=== PATIENT | male | born 1985 | race Caucasian/White ===

== ENCOUNTER 2025-08-26 08:07 | Day surgery (SDC) | payer OTHER, SELFPAY ==
[2025-08-26 08:47] VITALS: BMI 29.6
--- NOTE | 2025-08-26 10:11 | ITS.CL.CARDI ---
Chronometer Assembler - Cardioversion
Cardioversion
Procedure Report:
Procedure: MARVEL-guided electrical cardioversion
Pre-operative diagnosis: Persistent atrial fibrillation
Post-operative diagnosis: Persistent atrial fibrillation status post DC cardioversion to sinus rhythm
Anesthesia: MAC
Attending Physician: Samson Polanco MD
Procedure Description: The patient was brought to the electrophysiology laboratory in the fasting state. Informed consent was obtained from the patient prior to the start of the procedure. Adherence to anticoagulation was confirmed. Electrodes were
placed on the patient and connected to an external defibrillator. Monitoring of blood pressure, ECG tracings, and pulse oximetry was initiated. The pads were applied to the patient in the anterior and posterior positions. The patient was sedated by
the anesthesiologist. A MARVEL (reported separately) was performed prior to the cardioversion. No left atrial or left atrial appendage thrombus was seen. After the MARVEL probe was removed, a 200 joule biphasic synchronized shock was delivered to the
patient under MAC anesthesia. Sinus rhythm was successfully restored. The patient recovered uneventfully from MAC anesthesia. There were no immediate post-procedure complications. The patient left the lab in good condition. The attending physician
was present throughout the entire procedure.
Impression: Successful MARVEL-guided direct current cardioversion with quaker of sinus rhythm after one 200 joule biphasic synchronized shock.
== END 2025-08-26 10:30 | disposition home or self-care (01) ==
LOC: CATH 08:07
PROVIDERS: ATTENDING PHYSICIAN Internal Medicine Cardiovascular Disease; FAMILY PHYSICIAN Internal Medicine; OTHER PHYSICIAN Internal Medicine Cardiovascular Disease
DX: I48.19 Other persistent atrial fibrillation (principal); I34.1 Nonrheumatic mitral (valve) prolapse
CPT/HCPCS: 93312; 93325; 93320; 92960; 93005

== ENCOUNTER → 2025-09-18 17:10 | Outpatient (REF) | payer OTHER, SELFPAY | LOC: DHSLP 17:10 | PROVIDERS: ATTENDING PHYSICIAN Internal Medicine Cardiovascular Disease; FAMILY PHYSICIAN Internal Medicine | DX: G47.30 Sleep apnea, unspecified (principal); R06.83 Snoring | CPT/HCPCS: 95800 ==

== ENCOUNTER 2025-10-31 08:28 | Day surgery (SDC) | payer OTHER, SELFPAY ==
[2025-10-20 13:19] VITALS: BMI 28.5
[2025-10-20 13:43] LABS: Hematocrit 43.5 % (39.0-52.0); Hemoglobin 14.9 g/dL (13.0-18.0); Mean Corp Hgb Conc. 34.3 g/dL (33.0-37.0); Mean Corpuscular Volume 87.2 fL (80.0-94.0); Nucleated Red Blood Cells % 0 % (-); Platelet Count 269 10^3/uL (130-400); Red Cell Dist. Width 13.3 % (11.5-14.5)
[2025-10-20 13:50] LABS: INR 1.19; PT 15.2 Sec (11.4-14.6)
[2025-10-20 13:51] LABS: ALT (SGPT) 31 U/L (0-50); AST (SGOT) 27 U/L (17-59); Albumin 5.0 g/dl (3.5-5.0); Alkaline Phosphatase 64 U/L (38-126); Blood Urea Nitrogen 15 mg/dl (9-20); Calcium 9.9 mg/dl (8.4-10.2); Carbon Dioxide 30 mmol/L (22-30); Chloride 103 mmol/L (98-107); Estimated Creatinine Clearance 102 ml/min; Glucose 97 mg/dl (70-99); Magnesium 2.0 mg/dl (1.6-2.3); Potassium 4.2 mmol/L (3.5-5.1); Sodium 139 mmol/L (135-145); Total Protein 8.2 g/dl (6.3-8.2); eGFR > 60.00
[2025-10-31] VITALS (8 sets, daily range): BP systolic 108–150; BP diastolic 76–92; BMI 28.9
[2025-10-31 12:03] LABS: ACT-LR - POC 351 Seconds (116-155)
[2025-10-31 12:36] LABS: ACT-LR - POC 350 Seconds (116-155)
[2025-10-31 12:58] LABS: ACT-LR - POC 190 Seconds (116-155)
--- NOTE | 2025-10-31 13:13 | ITS.CL.ABL ---
House Furnishings Supervisor - Ablation
Ablation
Procedure Report:
Primary Care: Dr Gustavo Heredia
Procedure Date: 10/31/2025
Patient History:
Patient is a pleasant 40-year-old male with a past medical history significant for suspected sleep apnea, ADHD, and symptomatic persistent atrial fibrillation.
See H&P for complete details.
Indication:
Symptomatic persistent atrial fibrillation
Arrhythmia Specific History:
Prior Medical Therapies for Rate and Rhythm Control:
[ ] Beta-maribel
[ ] Calcium channel-maribel
[ ] Amiodarone
[ ] Dronederone
[ ] Sotalol
[ ] Flecainide
[ ] Dofetilide
X Options limited by bradycardia
[ ] Options limited by comorbid renal disease
Prior Procedural Therapies for AF/AFL:
X Cardioversion
[ ] Pulmonary Vein Isolation
[ ] Posterior Wall Isolation
[ ] Additional lines (Specify)
[ ] Surgical Gerber-MAZE or PVI (Specify)
Procedure Performed:
X AF ablation procedure (23756) -- includes LA/CS pacing, trans-septal, 3D mapping, + ICE
[ ] +IV drug (70333)
[ ] +Other Arrhythmia (86951)
[ ] +Other AF Line/ablation (32609)
Risks and expected recovery has been explained in detail. Alternative options have been explored, and in a shared-decision making fashion we have decided that this was the most appropriate procedure.
Method
NPO status confirmed. Grounding pad applied. Defibrillator pads applied. Continuous surface ECG, pulse oximetry, and blood pressure were monitored. Procedure was performed under general anesthesia, with anesthesia services.
Both groins were clipped, prepped with Chloraprep, and draped in sterile fashion. Time out was called. Local anesthesia administered with bupivacaine. The right femoral vein was accessed for catheter placement, using ultrasound guidance (images
saved to record), micro-puncture needle/wire, and modified seldinger technique. 3 sheaths were placed. The following catheters were used:
[ ] Tacticath SE (D/F Curve) ablation catheter
X Viewflex 9Fr ICE catheter
X Inquiry decapolar 6Fr diagnostic catheter
[ ] CRD Hex 6Fr
X Agilis 11.5 Fr Steerable Sheath
X Sphere-9 Ablation catheter
[ ] Advisor HD Grid Mapping Catheter, SE
[ ] Acuson AcuNav 8 Fr ICE catheter
[ ] Other: [ ]
A multipolar catheter were advanced to the coronary sinus. Intracardiac ultrasound (ICE) was carefully advanced into the right atrium to guide sheath placement over a J-wire, catheter placement, guide trans-septal puncture, identify potential
complications, identify anatomic structures and ensure proper contact between ablation catheter and tissue. A trace basal LV pericardial effusion was noted at the initiation of procedure. This remained unchanged throughout procedure and a case
completion.
Heparin was given to achieve and maintain a target ACT of 300-400 seconds throughout the procedure.
Trans-septal access was performed under ICE guidance. The trans-septal puncture was performed with a SafeSept wire through a Brockenbrough needle assembly through the steerable sheath. The wire was visualized as it entered the LSPV and system
advanced under ICE guidance and fluoroscopy into the LA. The Brockenbrough needle assembly, SafeSept wire and sheath dilator were removed under negative pressure. LA pressure was measured and recorded.
ICE and 3D mapping was performed to identify relevant cardiac structures. A careful 3D map was created to assess for regions of low-voltage and abnormal electrogram signals using Sphere-9 catheter. Additional mapping was performed as outlined below.
Prior to ablation, glycopyrrolate was provided. Sphere 9 catheter was advanced into the left atrium. Electroanatomic mapping was performed using the Sphere 9 catheter. Pulmonary vein isolation was performed using pulsed field ablation in a
circumferential manner. Contact was visualized via EAM, ICE, fluoroscopy, and EGM signals.
Following completion of ablation lesions, a post-ablation voltage/activation map was performed in sinus rhythm. Entrance and exit block were confirmed for each vein.
Catheter and sheath were removed from the left atrium and post-ablation intracardiac echo evaluation was consistent with pre-ablation with no changes and no pericardial effusion and there is no left atrial thrombus or left ventricle thrombus seen.
Electrophysiology study was performed. Additional pacing also performed for attempted induction of atrial flutter. No arrhythmias were induced. Hemostasis was obtained with Vascade for each sheath and with manual pressure. Protamine was used for
reversal.
Estimated Blood Loss
5 mL
Complications
None
Fluoroscopy: 3.6 minutes; 26.90 mGy; DAP 2.98
LA Pressure: Pre 9 mmHg, post 11 mmHg
Baseline Intervals:
Rhythm: SR
NM: 187 ms
QRS: 97 ms
QT: 390 ms
QTc: 398 ms
A-A: 960 ms
R-R: 960 ms
Post-Procedure Intervals:
NM: 175 ms
QRS: 87 ms
QT: 397 ms
QTc: 453 ms
A-A: 768 ms
R-R: 768 ms
AVWB: 340 ms
AVERP: 550/320 ms
AERP: 550/230 ms
Recommendations
- Bedrest with straight-leg precautions as ordered
- Anticipate same day discharge if patient meeting clinical metrics
- Resume home medications as indicated
- Ok to resume anticoagulation tonight if patient and groin sites stable
- Plan for follow-up in office as scheduled
Robbin Moreno DO, FACC, RS
Clinical Cardiac Upper Inspector
cc: Dr Gustavo Heredia
[2025-10-31 14:03] LABS: ACT-LR - POC > 397 Seconds (116-155)
--- NOTE | 2025-10-31 15:23 | W.PN.UPDATE ---
Update Note
Progress Note Update
Pt seen post PFA. Right groin with vascade closure, no ht/bleeding, non tender. Post EKG NSR 70, no acute changes. Resume eliquis tonight. Followup with Dr. Moreno as scheduled. Home today if groin site/tele remain stable.
== END 2025-10-31 16:00 | disposition home or self-care (01) ==
LOC: CATH 08:28
PROVIDERS: ATTENDING PHYSICIAN Internal Medicine Cardiovascular Disease; FAMILY PHYSICIAN Internal Medicine
DX: I48.19 Other persistent atrial fibrillation (principal); Z88.0 Allergy status to penicillin; J43.9 Emphysema, unspecified; Z79.01 Long term (current) use of anticoagulants
CPT/HCPCS: C1733; C1894; C1730; C1766; C1759; 36415; 75572; 80053; 83735; 85025; 85347; 85610; 86850; 86900; 86901; 93005; 93656; C1760; Q9967